=== PATIENT | female | born 1960 | race Caucasian/White ===

== ENCOUNTER 2021-12-13 08:52 | Outpatient (CLI) | payer BC | END 2021-12-13 08:53 | disposition home or self-care (01) | LOC: CSHULT 08:52 | PROVIDERS: ATTEND Family Medicine | DX: R10.10 Upper abdominal pain, unspecified (principal); M54.50 Low back pain, unspecified; M47.816 Spondylosis without myelopathy or radiculopathy, lumbar region | CPT/HCPCS: 72120; 76700 ==

== ENCOUNTER 2023-12-11 09:57 | Outpatient (CLI) | payer BC | END 2023-12-11 09:58 | disposition home or self-care (01) | LOC: CSHCT 09:57 | PROVIDERS: ATTEND Family Medicine | DX: K72.00 Acute and subacute hepatic failure without coma (principal); R77.0 Abnormality of albumin; R93.5 Abnormal findings on diagnostic imaging of other abdominal regions, including retroperitoneum; K76.9 Liver disease, unspecified; D17.71 Benign lipomatous neoplasm of kidney; N28.1 Cyst of kidney, acquired | CPT/HCPCS: 74178 ==